=== PATIENT | female | born 1965 | race Caucasian/White ===

== ENCOUNTER 2024-05-10 16:15 | Emergency (ER) | payer OTHER ==
[~2024-05-10] VITALS: Ht 162.6 cm; Wt 104.0 kg
[2024-05-10 16:27] VITALS: O2SAT 96
[2024-05-10] MEDS ORDERED: CEPH500T MT (18:44)
[2024-05-10] MEDS: LIDOCAINE HCL/PF 1% 10 MG/ML 5ML VIAL INFIL ONE (18:53)
[2024-05-10] MEDS: BACITRACIN ZINC OINT UDPKT TOP ONE (18:53)
[2024-05-10] MEDS: TETANUS, DIPHTHERIA, PERTUSSIS VAC/PF 0.5ML (>10YR OLD) IM ONE (18:59)
[2024-05-10 19:02] VITALS: BP 150/74; PULSE 80; RESP 16; TEMP 36.83628; O2SAT 98
== END 2024-05-10 19:03 | disposition home or self-care (01) ==
LOC: ER 16:15
DX: S60.451A Superficial foreign body of left index finger, initial encounter (principal); E11.9 Type 2 diabetes mellitus without complications; I10 Essential (primary) hypertension; E03.9 Hypothyroidism, unspecified; Z88.5 Allergy status to narcotic agent; Z90.89 Acquired absence of other organs; X58.XXXA Exposure to other specified factors, initial encounter; Y93.89 Activity, other specified; Y92.89 Other specified places as the place of occurrence of the external cause; Y99.8 Other external cause status
CPT/HCPCS: 73140; 90715; 90471; 99284; Z7610 ×2

== ENCOUNTER 2025-02-16 21:29 | Emergency (ER) | payer OTHER ==
[~2025-02-16] VITALS: Ht 160 cm; Wt 101.3 kg
[~2025-02-16 21:29] MED LIST: CEPH500T MT
[2025-02-16 21:36] VITALS: RESP 15; TEMP 37.2; O2SAT 98
[2025-02-16 22:39] LABS: BASOPHILS % 0.6 % (0.0-2.0); EOSINOPHILS % 3.0 % (0.0-5.0); HEMATOCRIT. 39.7 % (36.0-48.0); HEMOGLOBIN. 13.0 g/dL (12.0-16.0); LYMPHOCYTES % 37.7 % (20.0-50.0); MEAN PLATELET VOLUME 9.4 fl (7.4-10.4); MONOCYTES % 7.2 % (2.0-8.0); NEUTROPHILS % 51.5 % (40.0-76.0); PLATELET 221 x1000/uL (130-400); RED BLOOD CELL COUNT 4.53 mill/uL (4.2-5.4); RED CELL DISTRIBUTION WIDTH 14.4 % (11.6-14.6)
[2025-02-16 22:56] LABS: CREATININE 0.7 mg/dL (0.6-1.0); UREA NITROGEN BLOOD 7 mg/dL (9-23)
[2025-02-16 22:57] LABS: TROPONIN I HIGH SENSITIVITY < 4 ng/L (3.0-34)
[2025-02-16] MEDS: ACETAMINOPHEN 325MG TABLET PO ONE (23:08)
[2025-02-16] MEDS: MECLIZINE 25MG TABLET PO ONE (23:08)
[2025-02-17] LABS: *AMPHETAMINES SCREEN URINE NEGATIVE (NEGATIVE); *BENZODIAZEPINES SCREEN URINE NEGATIVE (NEGATIVE)
[2025-02-17 00:01] LABS: *BARBITURATES SCREEN URINE NEGATIVE (NEGATIVE); *COCAINE SCREEN URINE NEGATIVE (NEGATIVE); CANNABINOID URINE SCREEN NEGATIVE (NEGATIVE); ECSTASY MDMA SCREEN URINE NEGATIVE (NEGATIVE); METHADONE URINE SCREEN NEGATIVE (NEGATIVE); OPIATES URINE SCREEN NEGATIVE (NEGATIVE); PHENCYCLIDINE URINE SCREEN NEGATIVE (NEGATIVE)
[2025-02-17] MEDS: POTASSIUM CHLORIDE 20MEQ/PACKET PO NR (00:03)
[2025-02-17 00:23] LABS: CLARITY URINE CLOUDY (CLEAR); COLOR URINE YELLOW (YELLOW); PH URINE 7.5 (4.5-8.0); PROTEIN URINE NEGATIVE (NEGATIVE); SPECIFIC GRAVITY URINE 1.020 (1.005-1.030)
[2025-02-17 00:24] LABS: GLUCOSE URINE NEGATIVE (NEGATIVE); KETONES URINE NEGATIVE (NEGATIVE); LEUKOCYTE ESTERASE URINE TRACE (NEGATIVE); NITRITE URINE NEGATIVE (NEGATIVE); OCCULT BLOOD URINE NEGATIVE (NEGATIVE); UROBILINOGEN URINE 1.01 E.U./dL (0.2-1.0)
[2025-02-17 00:56] LABS: SQUAMOUS EPITHELIAL CELL URINE FEW /lpf (RARE/1+)
[2025-02-17 00:57] LABS: WBC URINE 0-2 /hpf (0-2)
[2025-02-17 00:58] LABS: BACTERIA URINE TRACE; RBC URINE 0-2 /hpf (0-2)
[2025-02-17 01:07] LABS: ETHANOL BLOOD < 10 mg/dL (<10)
[2025-02-17 01:09] LABS: ASPARTATE AMINOTRANSFERASE 21 IU/L (<34); BILIRUBIN DIRECT < 0.1 mg/dL (<=3.0); BILIRUBIN TOTAL 0.2 mg/dL (0.1-1.0); PROTEIN TOTAL 6.0 g/dL (6.0-8.3)
[2025-02-17] MEDS ORDERED: MECL-299 MT (01:12)
[2025-02-17] MEDS ORDERED: ACET-2708 MT (01:12)
[2025-02-17] MEDS ORDERED: ONDA4TAB50 MT (01:12)
[2025-02-17 01:42] VITALS: BP 172/83; PULSE 67; O2SAT 98
== END 2025-02-17 01:44 | disposition home or self-care (01) ==
LOC: ER 21:29
DX: R55 Syncope and collapse (principal); R51.9 Headache, unspecified; R07.89 Other chest pain; R42 Dizziness and giddiness; E03.9 Hypothyroidism, unspecified; E11.9 Type 2 diabetes mellitus without complications; I10 Essential (primary) hypertension; I67.82 Cerebral ischemia; Z88.5 Allergy status to narcotic agent; Z90.89 Acquired absence of other organs; Z79.899 Other long term (current) drug therapy
CPT/HCPCS: 80076; 80305; 80048; 81003; 80320; 82962; 83880; 85025; 84484; 36415; 71045; 70450; 93005; 99285; J8597; G0480